=== PATIENT | male | born 1970 ===

== ENCOUNTER 2017-02-18 13:50 | Emergency (ER) | payer MEDICAID ==
[2017-02-18 13:58] VITALS: BP 130/88; PULSE 75; RESP 16; TEMP 98.4; O2SAT 98
--- NOTE | 2017-02-18 14:30 | C.PDOC ---
History Of Present Illness A 46 year old male, who denies any significant past medical history, presents to the emergency department for a left ear ache, which gradually developed over the last few days and associated with some discharge from his left ear. The patient admits that his symptoms began after swimming. He denies fever, chills, headaches, dizziness, vertigo, recent illness, sore throat, drooling, dysphagia , dyspnea, or any other complaints at this time. Time Seen by Provider: 02/18/17 14:09 Chief Complaint (Nursing): ENT Problem History Per: Patient History/Exam Limitations: None Onset/Duration Of Symptoms: Days (x 3-5 days ) Current Symptoms Are (Timing): Still Present Quality (Ear): Discharge, Other (earache) Past Medical History Reviewed: Historical Data, Nursing Documentation, Vital Signs Vital Signs: Last Vital Signs Temp 98.4 F 02/18/17 13:54 Pulse 75 02/18/17 13:54 Resp 16 02/18/17 13:54 BP 130/88 02/18/17 13:54 Pulse Ox 98 02/18/17 14:51 - Medical History PMH: No Chronic Diseases Surgical History: Appendectomy Family History: States: No Known Family Hx - Social History Hx Alcohol Use: Yes Hx Substance Use: No Review Of Systems Except As Marked, All Systems Reviewed And Found Negative. Constitutional: Negative for: Fever, Chills ENT: Positive for: Ear Pain, Ear Discharge Neurological: Negative for: Weakness, Numbness, Altered Mental Status, Headache , Dizziness, Other (vertigo ) Physical Exam - Physical Exam Appears: Well, Non-toxic, No Acute Distress Skin: Normal Color, Warm, Dry, No Rash Eye(s): bilateral: PERRL Ear(s): Left: TM Erythema, Other ((+)mild ear canal edema with moderate amount of yellow discharge. No mastoid tenderness.), Right: Normal Nose: No Flaring, No Discharge Oral Mucosa: Moist, No Drooling Tongue: Normal Appearing Lips: Normal Appearing Throat: No Erythema, No Exudate, No Drooling Neck: Supple, Other ((-) meningeal sign) Cardiovascular: Rhythm Regular Respiratory: No Stridor, No Wheezing Extremity: Normal ROM, No Pedal Edema, No Deformity Neurological/Psych: Oriented x3, Normal Speech ED Course And Treatment O2 Sat by Pulse Oximetry: 98 Pulse Ox Interpretation: Normal Progress Note: On re-evaluation, pt is afebrile, hemodynamicaly stable. Non- toxic. PUlseOx 98% RA. ENT: Left ear exam c/w otitis externa r/o OM, no mastoid tenderness. Neck: Supple, (-) meningeal sign. Lungs: CTA B/L, BS equal B/L. Neuorlogicaly intact. Pt advised. ref. to f/u with PMD, ENT ni 2- 3 days for re-eavl. return i any new changes. Medical Decision Making Medical Decision Making: Treatment Plan: -- Augmentin Progress Notes: Disposition Counseled Patient/Family Regarding: Diagnosis, Need For Followup, Rx Given - Disposition Referrals: Damon Damon MD [Family Provider] - Disposition: HOME/ ROUTINE Disposition Time: 14:30 Condition: STABLE Additional Instructions: Take medication as prescribed Keep ear dry, avoid contact with water Follow up with PMD, ENT in 2-3 days for re-evaluation. Return to ED if any worsening or new changes. Prescriptions: Amoxicillin/Clavulanate [Augmentin 875 MG-125 MG] 1 tab PO BID #14 tab Neomycin/Polymyxin/Hydrocortis [Cortisporin Otic Susp] 3 drop TOP TID #1 bottle Instructions: Otitis Externa (ED) Forms: [facility] (Yakut) - Clinical Impression Clinical Impression: Otitis externa - Scribe Statement The provider has reviewed the documentation as recorded by the Scribe Ny Alba All medical record entries made by the Scribe were at my direction and personally dictated by me. I have reviewed the chart and agree that the record accurately reflects my personal performance of the history, physical exam, medical decision making, and the department course for this patient. I have also personally directed, reviewed, and agree with the discharge instructions and disposition
[2017-02-18] MEDS ORDERED: Amoxicillin-Clav 875-125 mg Tab PO STA (14:37)
[2017-02-18] MEDS ORDERED: Amoxicillin-Clav 875-125 mg Tab PO ONE (14:41)
== END 2017-02-18 15:04 | disposition home or self-care (01) ==
LOC: C.ER 13:50
DX: H60.92 Unspecified otitis externa, left ear (principal)

== ENCOUNTER 2017-08-06 12:08 | Emergency (ER) | payer MEDICAID ==
[2017-08-06 12:34] VITALS: RESP 18; O2SAT 98
--- NOTE | 2017-08-06 13:55 | C.PDOC ---
History Of Present Illness 47 y/o male c/o cough with greenish sputum, chest pain with coughing and deep breathing, x 1 week. no fever or chills. non smoker. Time Seen by Provider: 08/06/17 13:44 Chief Complaint (Nursing): Cough, Cold, Congestion Past Medical History Reviewed: Historical Data, Nursing Documentation, Vital Signs Vital Signs: Last Vital Signs Temp 98.3 F 08/06/17 12:32 Pulse 75 08/06/17 12:32 Resp 18 08/06/17 12:32 BP 134/89 08/06/17 12:32 Pulse Ox 98 08/06/17 12:32 Surgical History: Appendectomy Family History: States: Unknown Family Hx - Social History Hx Alcohol Use: Yes Hx Substance Use: No - Immunization History Hx Tetanus Toxoid Vaccination: No Hx Influenza Vaccination: No Hx Pneumococcal Vaccination: No Review Of Systems Constitutional: Negative for: Fever, Chills Cardiovascular: Negative for: Palpitations Respiratory: Positive for: Cough, Pleuritic Pain, Sputum. Negative for: Hemoptysis, Wheezing Skin: Negative for: Rash Neurological: Positive for: Weakness Physical Exam - Physical Exam Appears: Non-toxic, No Acute Distress Skin: Warm, Dry Head: Atraumatic, Normacephalic Neck: Supple Respiratory: No Decreased Breath Sounds, No Rales, No Rhonchi, No Wheezing Gastrointestinal/Abdominal: Soft, No Tenderness Extremity: No Tenderness, No Calf Tenderness, No Swelling Neurological/Psych: Oriented x3, Normal Speech, Normal Cognition ED Course And Treatment ECG: Interpreted By Me, Viewed By Me ECG Rhythm: Sinus Rhythm ECG Interpretation: Normal Interpretation Of ECG: nsr @77, no st-t changes Rate From EC O2 Sat by Pulse Oximetry: 98 Pulse Ox Interpretation: Normal Medical Decision Making Medical Decision Making: pt with 1 week of productive cough with pleuritic cp, no fevers. d/c home with supportive care Disposition Counseled Patient/Family Regarding: Diagnosis, Need For Followup - Disposition Referrals: [facility] [Outside] Disposition: HOME/ ROUTINE Disposition Time: 14:04 Condition: GOOD Additional Instructions: Please take ibuprofen for pain with coughing. Robitussen DM may help as well,. Follow up in medical clinic next week. Return to ER for any worse symptoms. Instructions: Acute Bronchitis - Clinical Impression Clinical Impression: Bronchitis
[2017-08-06 14:19] VITALS: BP 128/70; PULSE 72; TEMP 98.2
--- NOTE | 2017-08-07 12:20 | CARD ---
APPROVED REPORT EKG Measurement Heart [id number] <Conclusion> Normal sinus rhythm Normal ECG
== END 2017-08-06 14:18 | disposition home or self-care (01) ==
LOC: C.ER 12:08
DX: J40 Bronchitis, not specified as acute or chronic (principal)

== ENCOUNTER 2017-08-25 23:44 | Emergency (ER) | payer MEDICAID ==
[2017-08-25 23:59] VITALS: O2SAT 99
[2017-08-26] MEDS ORDERED: Tetanus/Diphtheria Toxoids 0.5 ml Syringe IM ONE (00:24)
[2017-08-26] MEDS ORDERED: Tdap Vaccine 0.5 ml Vial (10-64 yrs) IM ONE (00:40)
--- NOTE | 2017-08-26 00:47 | C.PDOC ---
History Of Present Illness 47yo male comes to ER for evaluation after injuring his finger on a foreign body. Patient states he was unclogging a toilet and when he reached in to remove an object, he felt a sharp object poke his right 3rd digit. He states his tetanus is not up to date; patient also states right after the injury he squeezed and washed his injured finger. He has no other complaints. Time Seen by Provider: 08/26/17 00:03 Chief Complaint (Nursing): Upper Extremity Problem/Injury History Per: Patient History/Exam Limitations: no limitations Current Symptoms Are (Timing): Still Present Past Medical History Reviewed: Historical Data, Nursing Documentation, Vital Signs Vital Signs: Last Vital Signs Temp 97.5 F L 08/26/17 00:53 Pulse 80 08/26/17 00:53 Resp 14 08/26/17 00:53 BP 110/70 08/26/17 00:53 Pulse Ox 99 08/26/17 00:53 - Medical History PMH: No Chronic Diseases Surgical History: Appendectomy Family History: States: Unknown Family Hx - Social History Hx Alcohol Use: Yes Hx Substance Use: No - Immunization History Hx Tetanus Toxoid Vaccination: No Hx Influenza Vaccination: No Hx Pneumococcal Vaccination: No Review Of Systems Except As Marked, All Systems Reviewed And Found Negative. Skin: Positive for: Other (injury to right 3rd digit by a sharp unknown object) Physical Exam - Physical Exam Appears: Non-toxic, No Acute Distress Skin: Normal Color Head: Normacephalic Eye(s): bilateral: Normal Inspection Neck: Supple Chest: Symmetrical Cardiovascular: Rhythm Regular Respiratory: Normal Breath Sounds Extremity: Normal ROM, Other (right 3rd digit with no wound or laceration noted. Skin normal color, no discharge noted. No signs of infection.) Neurological/Psych: Oriented x3 ED Course And Treatment O2 Sat by Pulse Oximetry: 99 (RA) Pulse Ox Interpretation: Normal - Other Rad XR Right hand X-Ray: Interpreted by Me Interpretation: No acute fractures or dislocations Progress Note: Patient given tetanus booster. Advised to follow up with PCP if he wishes to be tested for HIV; no such testing needed at present. Patient understands and is agreeable with plan. Stable for discharge home. Disposition Counseled Patient/Family Regarding: Diagnosis, Need For Followup - Disposition Referrals: [facility] [Outside] Disposition: HOME/ ROUTINE Disposition Time: 00:45 Condition: STABLE Additional Instructions: Please follow up with PMD or in clinic for further evaluation or baseline blood testing as necessary Return to ER if worse Forms: [facility] (Russian), Gen Discharge Inst Syriac - Clinical Impression Clinical Impression: Puncture wound - PA / ARCHITECT / Resident Statement MD/DO has reviewed & agrees with the documentation as recorded. - Scribe Statement The provider has reviewed the documentation as recorded by the Scribe (Dorothy Aiken) Provider Attestation: All medical record entries made by the Scribe were at my direction and personally dictated by me. I have reviewed the chart and agree that the record accurately reflects my personal performance of the history, physical exam, medical decision making, and the department course for this patient. I have also personally directed, reviewed, and agree with the discharge instructions and disposition.
[2017-08-26 00:54] VITALS: BP 110/70; PULSE 80; RESP 14; TEMP 97.5
--- NOTE | 2017-08-26 08:37 | RAD ---
PROCEDURE: Right middle finger radiographs. HISTORY: possible FB COMPARISON: None available. TECHNIQUE: AP radiograph of the right hand, as well as spot oblique and lateral images of right middle finger were obtained. FINDINGS: RIGHT MIDDLE FINGER: Right middle finger unremarkable without acute displaced fracture. Remainder of the right hand (as seen on the AP view) grossly unremarkable. JOINTS: No dislocation. SOFT TISSUES: Soft tissue swelling. No evidence of radiopaque foreign body. OTHER FINDINGS: None. IMPRESSION: Soft tissue swelling. No radiopaque foreign body evident.
== END 2017-08-26 00:54 | disposition home or self-care (01) ==
LOC: C.ER 23:44
DX: S61.232A Puncture wound without foreign body of right middle finger without damage to nail, initial encounter (principal); W26.9XXA Contact with unspecified sharp object(s), initial encounter; Z23 Encounter for immunization

== ENCOUNTER 2018-01-24 09:40 | Emergency (ER) | payer MEDICAID ==
[2018-01-24 09:45] VITALS: BMI 26.6
[2018-01-24] MEDS ORDERED: Sodium Chloride 0.9% 1,000 ML IV ONE (10:26)
--- NOTE | 2018-01-24 10:32 | C.PDOC ---
History Of Present Illness 47 y/o male with history of Appendectomy presents to ED with c/o abdominal pain since 7am this morning when he woke up associated with cold sweats. Patient admits to vomiting and denies fever, dysuria, hematuria, back pain, diarrhea or any other complaints at this time. Time Seen by Provider: 01/24/18 09:49 Chief Complaint (Nursing): Abdominal Pain History Per: Patient History/Exam Limitations: no limitations Onset/Duration Of Symptoms: Hrs Current Symptoms Are (Timing): Still Present Past Medical History Reviewed: Historical Data, Nursing Documentation, Vital Signs Vital Signs: Last Vital Signs Temp 98.3 F 01/24/18 14:45 Pulse 82 01/24/18 14:45 Resp 20 01/24/18 14:45 BP 132/78 01/24/18 14:45 Pulse Ox 99 01/24/18 14:45 - Medical History PMH: No Chronic Diseases Surgical History: Appendectomy Family History: States: No Known Family Hx - Social History Hx Alcohol Use: Yes Hx Substance Use: No - Immunization History Hx Tetanus Toxoid Vaccination: No Hx Influenza Vaccination: No Hx Pneumococcal Vaccination: No Review Of Systems Constitutional: Negative for: Fever, Chills Gastrointestinal: Positive for: Vomiting, Abdominal Pain. Negative for: Diarrhea Genitourinary: Negative for: Dysuria, Hematuria, Penile Discharge, Penile Pain Skin: Negative for: Rash Physical Exam - Physical Exam Appears: Non-toxic, No Acute Distress Skin: Warm, Dry, No Rash Head: Atraumatic, Normacephalic Eye(s): bilateral: Normal Inspection Oral Mucosa: Moist Neck: Supple Cardiovascular: Rhythm Regular Respiratory: Normal Breath Sounds, No Rales, No Rhonchi, No Wheezing Gastrointestinal/Abdominal: Soft, No Tenderness, No Guarding, No Rebound Back: No CVA Tenderness, No Paraspinal Tenderness Neurological/Psych: Oriented x3, Normal Speech, Normal Cognition ED Course And Treatment - Laboratory Results Result Diagrams: 01/24/18 10:40 01/24/18 10:40 O2 Sat by Pulse Oximetry: 96 (RA) Pulse Ox Interpretation: Normal Medical Decision Making Medical Decision Making: On re-exam, the patient reports improvement of symptoms. Lungs are CTA, heart is RRR, abdomen is soft, non-tender and tolerating PO well. Follow up with the medical doctor within 1-2 days. Return if worsened. Disposition - Disposition Referrals: [facility] at [facility] [Outside] Disposition: HOME/ ROUTINE Disposition Time: 14:25 Condition: STABLE Additional Instructions: . Follow up with the medical doctor within 1-2 days. Return if worsened. 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 - Scribe Statement The provider has reviewed the documentation as recorded by the Elsa Salvador All medical record entries made by the Elsa were at my direction and personally dictated by me. I have reviewed the chart and agree that the record accurately reflects my personal performance of the history, physical exam, medical decision making, and the department course for this patient. I have also personally directed, reviewed, and agree with the discharge instructions and disposition.
[2018-01-24] MEDS ORDERED: Sodium Chloride 0.9% 1,000 ML ONE (10:42)
[2018-01-24] MEDS ORDERED: Morphine 4 MG/ML VIAL ONE ×2 (10:42→14:10)
[2018-01-24 10:46] LABS: BASO # 0.1 K/uL (0.0-0.2); BASO % 0.6 % (0.0-2.0); EOS % 0.3 % (0.0-4.0); HEMOGLOBIN 14.3 g/dL (12.0-18.0); LYMPH # 1.5 K/uL (1.0-4.3); LYMPH % 12.9 % (20.0-40.0); MEAN CELL VOLUME 92.1 fL (80.0-94.0); MEAN CORPUSCULAR HEMOGLOBIN 31.3 pg (27.0-31.0); MEAN PLATELET VOLUME 9.7 fL (7.2-11.7); MONO # 0.4 K/uL (0.0-0.8); MONO % 3.4 % (0.0-10.0); NEUT # 9.4 K/uL (1.8-7.0); NEUT % 82.8 % (50.0-75.0); RBC 4.57 Mil/uL (4.40-5.90); RED CELL DISTRIBUTION WIDTH 13.8 % (11.5-14.5); WHITE BLOOD COUNT 11.3 K/uL (4.8-10.8)
[2018-01-24 10:52] LABS: URINE BILIRUBIN NEGATIVE (NEGATIVE); URINE BLOOD NEGATIVE (NEGATIVE); URINE CLARITY Clear (Clear); URINE COLOR Yellow (YELLOW); URINE GLUCOSE (UA) NORMAL (Normal); URINE LEUKOCYTE ESTERASE NEG Leu/uL (Negative); URINE PROTEIN NEGATIVE (NEGATIVE); URINE UROBILINOGEN NORMAL mg/dL (0.2-1.0)
[2018-01-24 10:58] LABS: ALB/GLOB RATIO 1.4 (1.0-2.1); ALBUMIN 4.7 g/dL (3.5-5.0); ALT/SGPT 43 U/L (21-72); AST/SGOT 29 U/L (17-59); BLOOD UREA NITROGEN 19 mg/dL (9-20); CALCIUM 9.5 mg/dl (8.6-10.4); GFR AFRICAN-AMERICAN > 60; GFR NON-AFRICAN AMERICAN > 60; LIPASE 67 U/L (23-300)
[2018-01-24] MEDS ORDERED: Iodixanol 320 MG/ML 100 ML BOTTLE IV ONE (12:12)
--- NOTE | 2018-01-24 13:28 | RAD ---
Date of service: 01/24/2018 PROCEDURE: CHEST RADIOGRAPH, 1 VIEW HISTORY: abd pain COMPARISON: None available. FINDINGS: LUNGS: Clear. PLEURA: No pneumothorax or pleural fluid seen. CARDIOVASCULAR: Normal. OSSEOUS STRUCTURES: No significant abnormalities. VISUALIZED UPPER ABDOMEN: Normal. OTHER FINDINGS: None. IMPRESSION: No active disease.
--- NOTE | 2018-01-24 13:42 | CT ---
Date of service: 01/24/2018 PROCEDURE: CT Abdomen and Pelvis with contrast HISTORY: mid abd pain, vomiting, possible stne, vs colitis. COMPARISON: None. TECHNIQUE: Contrast dose: 100 mL Visipaque 320 Radiation dose: Total exam DLP = 887.92 mGy-cm. This CT exam was performed using one or more of the following dose reduction techniques: Automated exposure control, adjustment of the mA and/or kV according to patient size, and/or use of iterative reconstruction technique. FINDINGS: LOWER THORAX: Unremarkable. LIVER: Normal size, contour and attenuation. Incidental 12 mm low-density lesion in the lateral segment left hepatic lobe. No intrahepatic biliary ductal dilatation. GALLBLADDER AND BILE DUCTS: Cholelithiasis. No mural thickening or pericholecystic fluid to suggest cholecystitis. PANCREAS: Unremarkable. No gross lesion or ductal dilatation. SPLEEN: Unremarkable. ADRENALS: Unremarkable. No mass. KIDNEYS AND URETERS: Unremarkable. No hydronephrosis. No solid mass. VASCULATURE: Unremarkable. No aortic aneurysm. BOWEL: Unremarkable. No obstruction. No gross mural thickening. APPENDIX: Not identified. No secondary findings to suggest acute appendicitis, however. PERITONEUM: Unremarkable. No free fluid. No free air. LYMPH NODES: Unremarkable. No enlarged lymph nodes. BLADDER: Unremarkable. REPRODUCTIVE: Normal prostate BONES: No acute fracture. OTHER FINDINGS: None. IMPRESSION: No acute abnormality. Incidental minor findings as above.
[2018-01-24 14:53] VITALS: BP 132/78; PULSE 82; RESP 20; TEMP 98.3
[2018-01-25 22:44] VITALS: O2SAT 96
== END 2018-01-24 14:51 | disposition home or self-care (01) ==
LOC: C.ER 09:40
DX: K80.20 Calculus of gallbladder without cholecystitis without obstruction (principal)
CPT/HCPCS: 71045; 74177; 80053; 81001; 83690; 85025; 96361; 96374; 96375; 96376; 99285; J1885; J2270; J2405; J7030; Q9967

== ENCOUNTER 2018-01-28 06:41 | Emergency (ER) | payer MEDICAID ==
[2018-01-28 06:41] VITALS: BMI 26.6
[2018-01-28 06:52] VITALS: BP 133/86; PULSE 70; TEMP 98.3; O2SAT 98
--- NOTE | 2018-01-28 07:42 | C.PDOC ---
History Of Present Illness 47 y/o male presents to the ER complaining of epigastric abdominal pain, vomiting, and diarrhea which has been present for the past 5 days. Patient states that he was evaluated in [facility] for similar symptoms 5 days ago and he was discharged with prescriptions for Pepcid and Naproxen. However, he reports that his symptoms did not improve so he returned to the ER today. Denies having fever, chills, dysuria, and hematuria. Time Seen by Provider: 01/28/18 07:00 Chief Complaint (Nursing): Abdominal Pain History Per: Patient History/Exam Limitations: no limitations Onset/Duration Of Symptoms: Days Current Symptoms Are (Timing): Still Present Severity: Moderate Location Of Pain/Discomfort: Epigastric Associated Symptoms: Vomiting, Diarrhea. denies: Fever, Chills, Urinary Symptoms Past Medical History Reviewed: Historical Data, Nursing Documentation, Vital Signs Vital Signs: Last Vital Signs Temp 98.3 F 01/28/18 06:49 Pulse 70 01/28/18 06:49 Resp 14 01/28/18 06:49 BP 133/86 01/28/18 06:49 Pulse Ox 98 01/28/18 07:57 - Medical History PMH: No Chronic Diseases Surgical History: Appendectomy Family History: States: No Known Family Hx - Social History Hx Alcohol Use: Yes Hx Substance Use: No - Immunization History Hx Tetanus Toxoid Vaccination: No Hx Influenza Vaccination: No Hx Pneumococcal Vaccination: No Review Of Systems Except As Marked, All Systems Reviewed And Found Negative. Constitutional: Negative for: Fever, Chills Gastrointestinal: Positive for: Vomiting, Abdominal Pain, Diarrhea Genitourinary: Negative for: Dysuria, Hematuria Physical Exam - Physical Exam Appears: Non-toxic, No Acute Distress Skin: Normal Color, Warm, Dry Head: Atraumatic, Normacephalic Eye(s): bilateral: Normal Inspection Nose: Normal Oral Mucosa: Moist Neck: Supple Chest: Symmetrical Cardiovascular: Rhythm Regular Respiratory: Normal Breath Sounds, No Rales, No Rhonchi, No Wheezing Gastrointestinal/Abdominal: Bowel Sounds (positive bowel sounds), Soft, Tenderness (epiagstric tenderness ), No Guarding, No Rebound Neurological/Psych: Oriented x3, Normal Speech ED Course And Treatment - Laboratory Results Result Diagrams: 01/28/18 07:50 O2 Sat by Pulse Oximetry: 98 (RA) Pulse Ox Interpretation: Normal Medical Decision Making Medical Decision Making: Assessment: Abdominal Pain Plan: --Protonix IV --Toradol IV --Zofran IV --Labs --UA --ECG --X-Ray -Obs. Series Updates: The patient declines to have further medical evaluation and treatment and wishes to leave the Emergency Department. This action is against my medical advice to the patient, and with informed refusal. The patient was told that evaluation and treatment are necessary and a full explanation of the rationale was given. The risks of leaving were explained to the patient and include, but are not limited to, worsening of known or currently unknown conditions, permanent disability and from undiagnosed or untreated conditions The patient has the capacity to make this informed decision and understands the clinical situation and my explanation of the risks of leaving. The patient voluntarily accepts these risks, and a signed AMA form documenting our conversation was obtained. The patient was given the opportunity to ask questions and reconsider. The patient was encouraged to return to the Emergency Department at any time for further care. Disposition - Disposition Disposition: AGAINST MEDICAL ADVICE Disposition Time: 07:55 Condition: STABLE Forms: [facility] (South Sudanese) - Clinical Impression Clinical Impression: Abdominal pain - Scribe Statement The provider has reviewed the documentation as recorded by the Aracelyibe Pawel Hidalgo Provider Attestation: All medical record entries made by the Scribe were at my direction and personally dictated by me. I have reviewed the chart and agree that the record accurately reflects my personal performance of the history, physical exam, medical decision making, and the department course for this patient. I have also personally directed, reviewed, and agree with the discharge instructions and disposition.
[2018-01-28 07:54] LABS: BASO # 0.1 K/uL (0.0-0.2); BASO % 0.4 % (0.0-2.0); EOS # 0.1 K/uL (0.0-0.7); EOS % 0.6 % (0.0-4.0); HEMOGLOBIN 13.9 g/dL (12.0-18.0); LYMPH # 1.4 K/uL (1.0-4.3); LYMPH % 8.6 % (20.0-40.0); MEAN CELL VOLUME 92.7 fL (80.0-94.0); MEAN CORPUSCULAR HEMOGLOBIN 31.6 pg (27.0-31.0); MEAN PLATELET VOLUME 10.6 fL (7.2-11.7); MONO # 1.3 K/uL (0.0-0.8); NEUT # 13.5 K/uL (1.8-7.0); NEUT % 82.4 % (50.0-75.0); PLATELET COUNT 239 K/uL (130-400); RBC 4.41 Mil/uL (4.40-5.90); RED CELL DISTRIBUTION WIDTH 13.8 % (11.5-14.5); WHITE BLOOD COUNT 16.4 K/uL (4.8-10.8)
[2018-01-28 08:02] LABS: URINE BILIRUBIN NEGATIVE (NEGATIVE); URINE BLOOD NEGATIVE (NEGATIVE); URINE CLARITY Clear (Clear); URINE COLOR Yellow (YELLOW); URINE GLUCOSE (UA) NORMAL (Normal); URINE LEUKOCYTE ESTERASE NEG Leu/uL (Negative); URINE PROTEIN NEGATIVE (NEGATIVE)
[2018-01-28 08:03] VITALS: RESP 18
[2018-01-28 08:22] LABS: BANDS 2 % (0-2); LYMPHOCYTE 10 % (20-40); MONOCYTE 8 % (0-10); NEUTROPHIL 80 % (50-75); PLATELET ESTIMATE NORMAL (NORMAL); TOTAL CELLS COUNTED 100
[2018-01-28 08:38] LABS: ALB/GLOB RATIO 1.1 (1.0-2.1); ALBUMIN 4.5 g/dL (3.5-5.0); ALT/SGPT 55 U/L (21-72); AST/SGOT 57 U/L (17-59); BLOOD UREA NITROGEN 16 mg/dL (9-20); CALCIUM 9.2 mg/dl (8.6-10.4); GFR AFRICAN-AMERICAN > 60; GFR NON-AFRICAN AMERICAN > 60; LIPASE 40 U/L (23-300)
== END 2018-01-28 08:00 | disposition left against medical advice (07) ==
LOC: C.ER 06:41
DX: R10.13 Epigastric pain (principal)

== ENCOUNTER 2018-04-02 15:16 | Emergency (ER) | payer MEDICAID ==
[2018-04-02 15:17] VITALS: BMI 26.6
[2018-04-02 15:34] VITALS: BP 109/71; PULSE 86; RESP 18; TEMP 98.4; O2SAT 98
--- NOTE | 2018-04-02 16:12 | C.PDOC ---
History Of Present Illness 48 y/o male presents to the ED complaining of diarrhea and generalized myalgia for 2 days. He reports having watery bowel movements. No fever or other associated symptoms. Prior surgical history includes cholecystectomy in 01/2018. Patient with multiple prior ED visits for similar complaints. He admits symptoms improve after taking Tylenol, last dose was 6 hours ago. Time Seen by Provider: 04/02/18 15:46 Chief Complaint (Nursing): Abdominal Pain History Per: Patient History/Exam Limitations: no limitations Onset/Duration Of Symptoms: Days (x2) Current Symptoms Are (Timing): Still Present Associated Symptoms: Diarrhea Past Medical History Reviewed: Historical Data, Nursing Documentation, Vital Signs Vital Signs: Last Vital Signs Temp 98.4 F 04/02/18 15:29 Pulse 86 04/02/18 15:29 Resp 18 04/02/18 15:29 BP 109/71 04/02/18 15:29 Pulse Ox 98 04/02/18 15:29 Surgical History: Appendectomy, Cholecystectomy Family History: States: Unknown Family Hx - Social History Hx Tobacco Use: No Hx Alcohol Use: Yes Hx Substance Use: No - Immunization History Hx Tetanus Toxoid Vaccination: No Hx Influenza Vaccination: No Hx Pneumococcal Vaccination: No Review Of Systems Except As Marked, All Systems Reviewed And Found Negative. Constitutional: Positive for: Other (Myalgia). Negative for: Fever, Chills Cardiovascular: Negative for: Chest Pain Respiratory: Negative for: Cough, Shortness of Breath Gastrointestinal: Positive for: Diarrhea. Negative for: Nausea, Vomiting, Hematochezia Physical Exam - Physical Exam Appears: Well, Non-toxic, No Acute Distress Skin: Warm, Dry Head: Atraumatic, Normacephalic Eye(s): bilateral: Normal Inspection, PERRL, EOMI Oral Mucosa: Moist Neck: Normal ROM Chest: Symmetrical Cardiovascular: Rhythm Regular, No Murmur Respiratory: Normal Breath Sounds, No Accessory Muscle Use, Other (NARD) Gastrointestinal/Abdominal: Soft, No Tenderness, No Distention, No Guarding, No Rebound Extremity: Bilateral: Atraumatic, Normal Color And Temperature, Normal ROM Neurological/Psych: Oriented x3, Normal Speech ED Course And Treatment O2 Sat by Pulse Oximetry: 98 (RA) Pulse Ox Interpretation: Normal Medical Decision Making Medical Decision Making: Plan: Patient counseled regarding diagnosis and follow-up instructions. Plan is to discharge patient home with prescriptions for Lonox and Bentyl. Patient expresses understanding of and agreement with plan. Disposition Counseled Patient/Family Regarding: Diagnosis, Need For Followup, Rx Given - Disposition Referrals: [facility] [Outside] [facility] [Outside] Disposition: HOME/ ROUTINE Disposition Time: 16:11 Condition: GOOD Prescriptions: Atropine/Diphenoxylate [Lonox 0.025 MG-2.5 MG] 1 tab PO BID #10 tab Dicyclomine [Bentyl] 20 mg PO TID PRN #12 tab PRN Reason: Pain Instructions: Viral Gastroenteritis, Adult (DC) Forms: [employer] (Venezuelan) - Clinical Impression Clinical Impression: Diarrhea, Viral syndrome - Scribe Statement The provider has reviewed the documentation as recorded by the Scribe (Karrie Otero) Provider Attestation: All medical record entries made by the Scribe were at my direction and personally dictated by me. I have reviewed the chart and agree that the record accurately reflects my personal performance of the history, physical exam, medical decision making, and the department course for this patient. I have also personally directed, reviewed, and agree with the discharge instructions and disposition.
== END 2018-04-02 16:21 | disposition home or self-care (01) ==
LOC: C.ER 15:16
DX: B34.9 Viral infection, unspecified (principal); R19.7 Diarrhea, unspecified